=== PATIENT | female | born 1980 | race Caucasian/White ===

== ENCOUNTER → 2017-08-18 09:50 | Outpatient (CLI) | payer OTHER, MEDICAID, SELFPAY ==
[2017-08-18 12:18] LABS: Absolute Lymphocyte Count 1.52 X10^3/ul (0.83-4.51); Absolute Neutrophil Count 2.4 X10^3/uL (2.0-7.7); Basophil# 0.04 X10^3/uL; Basophil% 0.8 % (0-1); Eosinophil# 0.13 X10^3/uL; Eosinophils% 2.7 % (0-5); Hematocrit 39.8 % (37-47); Hemoglobin 13.2 g/dl (12.0-15.0); Lymphocyte # 1.52 X10^3/ul (4.0); Lymphocyte % 31.8 % (19-41); Mean Corp Hgb Conc 33.2 g/gl (32-36); Mean Corpuscular Hgb 32.2 pg (27.0-32.0); Mean Corpuscular Volume 97.1 fL (81-99); Mean Platelet Vol. 10.5 fl (6.2-12.0); Monocyte% 14.6 % (0-10); Neutrophil # 2.39 X10^3/uL (2.7-7.7); Neutrophil % 50.1 % (47-70); Platelet Count 281 K/mm3 (150-450); RBC Distribution Width CV 12.7 % (11.6-14.6); RBC Distribution Width SD 44.6 fl (35.1-43.9); White Blood Count 4.8 K/mm3 (4.4-11.0)
[2017-08-18 12:25] LABS: POSITIVE COUNT NO; POSITIVE DIFFERENTIAL NO; POSITIVE MORPHOLOGY NO
[2017-08-18 12:30] LABS: Magnesium 1.9 mg/dL (1.6-2.6)
== END ==
PROVIDERS: Family Provider Family Medicine; PCP Family Medicine; Visit Provider Physician Assistant Medical
DX: R00.2 Palpitations (principal); R53.83 Other fatigue
CPT/HCPCS: 36415; 83735; 85025

== ENCOUNTER → 2018-06-02 10:09 | Outpatient (CLI) | payer OTHER, SELFPAY ==
[2018-04-27 13:33] VITALS: BMI 28.0
--- NOTE | 2018-06-02 10:21 | RAD_ITS ---
STUDY: X-RAY - CERVICAL SPINE REASON FOR EXAM: Female, 37 years old. Neck and left shoulder pain TECHNIQUE: 5 view(s) of the cervical spine were obtained. COMPARISON: None FINDINGS: Normal anterior atlantoaxial articulation. Normal odontoid process. There is straightening of the normal cervical lordosis. There is minimal endplate spondylosis of C4-C7. Normal disc space heights. Normal visualized intervertebral neuroforamina. The soft tissue structures are unremarkable. RAD/Cerv Spine 4 or 5 Views IMPRESSION: Minimal endplate spondylosis of C4-C7. There is straightening of the normal lordotic curvature which may be positional in nature or due to muscular spasm. There is no evidence of fracture or subluxation. Disc spacing is preserved. Electronically Signed: Cesar Mireles MD at 16:28 EST , Service support ,
--- NOTE | 2018-06-02 10:22 | RAD_ITS ---
STUDY: X-RAY - LEFT SHOULDER REASON FOR EXAM: Female, 37 years old. Neck and left shoulder pain TECHNIQUE: 4 view(s) of the shoulder. COMPARISON: None. FINDINGS: Normal glenohumeral articulation. Normal acromioclavicular joint. Normal acromion. Normal humeral head and visualized proximal humerus. The soft tissue structures are unremarkable. Normal visualized pulmonary apex. RAD/Shoulder min 2 Views IMPRESSION: Normal x-ray examination of the shoulder. Electronically Signed: Cesar Mireles MD at 16:33 EST , Service support ,
== END ==
PROVIDERS: Family Provider Family Medicine; PCP Family Medicine; Referring Provider Family Medicine; Visit Provider Family Medicine
DX: M62.838 Other muscle spasm (principal)
CPT/HCPCS: 72050; 73030

== ENCOUNTER → 2019-08-18 | Outpatient (CLI) | payer OTHER, SELFPAY ==
[2019-05-15 14:24] VITALS: BMI 27.9
--- NOTE | 2019-08-18 15:30 | RAD_ITS ---
STUDY: X-RAY CHEST REASON FOR EXAM: Female, 39 years old. Shortness of breath and cough TECHNIQUE: PA and lateral views of the chest. COMPARISON: None. FINDINGS: The lungs are clear and expanded. There is no demonstrated pleural abnormality. Normal size heart. Normal mediastinum and russell. Normal visualized pulmonary arteries. Normal visualized aortic arch and descending thoracic aorta. Normal visualized thoracic spine. Normal visualized ribs, clavicles, and shoulders. There is no demonstrated abnormality of the visualized soft tissue structures of the upper abdomen. RAD/Chest PA and Lateral IMPRESSION: Normal x-ray examination of the chest. Electronically Signed: Simeon Vitale MD at 10:45 EST , Service support ,
== END | disposition home or self-care (01) ==
LOC: MTRAD 15:27
PROVIDERS: PCP Family Medicine; Referring Provider Family Medicine; Visit Provider Family Medicine
DX: R05 Cough (principal); R06.00 Dyspnea, unspecified
CPT/HCPCS: 71046

== ENCOUNTER → 2020-07-17 10:52 | Outpatient (CLI) | payer OTHER, SELFPAY ==
[2019-05-15 14:24] VITALS: BMI 27.9
[2020-07-17 12:26] LABS: D-Dimer Quantitative (DVT/PE) <= 0.27 FEU/ug/m (0.27-0.49)
== END ==
PROVIDERS: PCP Family Medicine; Visit Provider Family Medicine
DX: R05 Cough (principal); R06.00 Dyspnea, unspecified
CPT/HCPCS: 36415; 85379

== ENCOUNTER → 2020-07-19 10:21 | Outpatient (CLI) | payer OTHER, SELFPAY ==
[2019-05-15 14:24] VITALS: BMI 27.9
--- NOTE | 2020-07-19 10:27 | RAD_ITS ---
STUDY: X-RAY CHEST REASON FOR EXAM: Female, 40 years old. PERSISTENT DYSPNEA AND COUGH -- S/P COVID x8 WEEKS AGO TECHNIQUE: PA and lateral views of the chest. COMPARISON: Comparison is made with prior study dated 08/18/2019. FINDINGS: Hyperinflation. The lungs are clear. There is no demonstrated pleural abnormality. Normal size heart. Normal mediastinum and russell. Normal visualized pulmonary arteries. Normal visualized aortic arch and descending thoracic aorta. Normal visualized thoracic spine. Normal visualized ribs, clavicles, and shoulders. There is no demonstrated abnormality of the visualized soft tissue structures of the upper abdomen. RAD/Chest PA and Lateral IMPRESSION: Hyperinflation. The lungs are clear. Electronically Signed: Donald Mathis MD at 12:57 EST , Service support ,
== END ==
PROVIDERS: PCP Family Medicine; Referring Provider Family Medicine; Visit Provider Family Medicine
DX: R06.00 Dyspnea, unspecified (principal); R05 Cough
CPT/HCPCS: 71046

== ENCOUNTER → 2020-09-09 12:16 | Outpatient (CLI) | payer OTHER, SELFPAY ==
[2019-05-15 14:24] VITALS: BMI 27.9
[2020-09-09 14:53] LABS: Absolute Lymphocyte Count 1.55 X10^3/uL (0.83-4.51); Absolute Neutrophil Count 4.3 X10^3/uL (2.0-7.7); Basophil# 0.04 X10^3/uL; Basophil% 0.6 % (0-1); Eosinophil# 0.08 X10^3/uL; Eosinophils% 1.2 % (0-5); Hematocrit 40.1 % (37-47); Hemoglobin 13.3 g/dL (12.0-15.0); Lymphocyte # 1.55 X10^3/ul (4.0); Lymphocyte % 23.8 % (19-41); Mean Corp Hgb Conc 33.2 g/dL (32-36); Mean Corpuscular Hgb 33.2 pg (27.0-32.0); Mean Platelet Vol. 10.2 fl (6.2-12.0); Monocyte# 0.51 X10^3/uL; Monocyte% 7.8 % (0-10); NRBC Flagged by Analyzer 0 % (0-5); Neutrophil # 4.32 X10^3/uL (2.7-7.7); Neutrophil % 66.3 % (47-70); Platelet Count 331 K/mm3 (150-450); RBC Distribution Width CV 12.6 % (11.6-14.6); RBC Distribution Width SD 46.8 fl (35.1-43.9); Red Blood Count 4.01 M/mm3 (4.2-5.4); White Blood Count 6.5 K/mm3 (4.4-11.0)
[2020-09-09 15:13] LABS: Vitamin B12 445 pg/mL (211-911); Vitamin D,25 Hydroxy 24.7 ng/mL
[2020-09-09 15:31] LABS: ALB/GLOB Ratio 1.1 RATIO (0.9-2.4); AST(SGOT) 19 U/L (15-37); Alanine Aminotransfer ALT/SGPT 39 U/L (13-56); Alkaline Phosphatase 64 U/L (45-117); Anion Gap 4 (5-15); BUN 8 mg/dL (7-18); BUN/Creat Ratio 10.6 RATIO (10-20); Chloride 105 mmol/L (98-107); Creatinine, Serum 0.76 mg/dL (0.55-1.02); EST Glomerular Filtration Rate 91 mL/min (>60); Est Glom Filt Rate - Afr Amer 110 mL/min (>60); Free T3 1.8 pg/mL (2.18-3.98); Globulin 3.6 g/dL (2.2-4.2); Glucose 90 mg/dL (74-106); Iron 125 ug/dL (50-170); Potassium 4.1 mmol/L (3.5-5.1); Protein, Total 7.6 g/dL (6.4-8.2); Sodium Level 137 mmol/L (136-145); T4 Free Direct 0.74 ng/dL (0.76-1.46); Thyroid Stim Hormone (TSH) 1.83 uIU/mL (0.358-3.74)
== END ==
PROVIDERS: PCP Family Medicine; Referring Provider Family Medicine; Visit Provider Family Medicine
DX: E55.9 Vitamin D deficiency, unspecified (principal); E53.8 Deficiency of other specified B group vitamins; D64.9 Anemia, unspecified; E61.1 Iron deficiency; R53.83 Other fatigue; Z51.81 Encounter for therapeutic drug level monitoring
CPT/HCPCS: 36415; 80053; 82306; 82607; 83540; 84439; 84443; 84481; 85025

== ENCOUNTER → 2021-05-20 07:54 | Outpatient (CLI) | payer OTHER, SELFPAY ==
--- NOTE | 2021-05-20 07:57 | US_ITS ---
STUDY: THYROID ULTRASOUND REASON FOR EXAM: Female, 40 years old. THYROMEGALY TECHNIQUE: Ultrasound evaluation of the thyroid was performed with real-time and static franco-scale imaging. COMPARISON: None. FINDINGS: RIGHT LOBE: The right lobe of the thyroid gland measures 4.7x2x1.8 cm. There is a homogeneous echotexture. There is a nodule. This measures 7 x 7 x 6 mm. The lesion is solid with regular margins and estuardo nodular doppler flow. LEFT LOBE: The left lobe of the thyroid gland measures 4.6x1.8x1.6 cm. There is a homogeneous echotexture. There is a nodule. This measures 10 x 5 x 6 mm. The lesion is solid with regular margins and estuardo nodular doppler flow. ISTHMUS: The isthmus measures 2 mm. The regional lymph nodes are normal. US/Thyroid IMPRESSION: There are RIGHT nodules. This nodule is solid or almost completely solid, anechoic, [id number], smoothly marginated and contains no echogenic foci. TI-RADS points: 2. TI-RADS category: TR2. This nodule is not suspicious and no FNA or follow-up is necessary. There are left nodules. TR2: Not Suspicious: No FNA Electronically Signed: Issa Schultz MD at 16:22 EST , Service support ,
== END ==
PROVIDERS: PCP Family Medicine; Referring Provider Family Medicine; Visit Provider Family Medicine
DX: E01.0 Iodine-deficiency related diffuse (endemic) goiter (principal)
CPT/HCPCS: 76536

== ENCOUNTER 2021-06-05 06:29 | Day surgery (SDC) | payer OTHER, SELFPAY ==
[2021-06-05 06:58] LABS: Internal QC Validated? YES +Cl - CLEAR BKGD; Pregnancy, Urine Negative Negative
[2021-06-05 07:04] VITALS: BP 123/77; PULSE 88; RESP 16; TEMP 36.2; O2SAT 100; BMI 28.5
[2021-06-05] MEDS: Lactated Ringers 1,000 ML 15 ML IV (07:09)
--- NOTE | 2021-06-05 07:11 | PCM.HP.BLA ---
History and Physical Date of Admission: 06/05/21 Date of Service: 05/26/21 MR#:[id number]:[id number]: ROBERTH OSBORNE [facility] #:[id number]:1980 Provider:Dr. Todd Gallegos MDAge/Sex: 40/F [facility] Vital Signs 05/26/21 08:58 Height 5 ft 6 in Weight: 178 lb 4 oz BMI 28.8 BP 161/85 H Blood Pressure Location Rt brachial Position Sitting Respiration 17 Pulse 84 Pulse Source Monitor Temp 97.2 F L Temp Source Temporal Pulse Oximetry (%) 98 Oxygen Delivery Method room air Intake Visit Reasons: Esophagogastroduodenoscopy Chief Complaint: Esophagogastroduodenoscopy [employer] Counter Assistant Required: No Is patient in pain?: No Allergies No Known Allergies Allergy (Verified 05/26/21 08:59) Medications duloxetine 60 mg capsule,delayed release 60 mg PO QDAY 08/10/17 [History Confirmed 05/26/21] bupropion HCl 150 mg tablet,12 hr sustained-release 300 mg PO QDAY ea 04/27/18 [History Confirmed 05/26/21] nadolol 20 mg tablet 10 mg PO DAILY tab 05/26/21 [History] omeprazole 40 mg capsule,delayed release 40 mg PO DAILY 05/26/21 [History Confirmed 05/26/21] [facility] Medical History (Updated 05/26/21 @ 10:[address] Todd Gallegos MD) Abnormal EKG Chest pain, precordial Dizziness and giddiness Fatigue Palpitations Paroxysmal tachycardia Syncope and collapse Tobacco abuse Surgical History (Updated 05/26/21 @ 08:57 by Lianne Wednesday) History of ankle surgery Family History (Updated 05/26/21 @ 09:03 by Lianne Wednesday) Mother Hypertension SVT (supraventricular tachycardia) Cancer skin CA Grandmother Breast cancer Paternal and maternal grandmothers Brother Hypertension Social History (Updated 05/26/21 @ 08:57 by Lianne Wednesday) Smoking Status: Former smoker alcohol intake: current details: occasional substance use type: does not use HPI HPI HPI: ROBERTH OSBORNE, is a 40 F who presents to the office today for new hoarseness, globus sensation and acid reflux. They are referred for surgical consultation from Dr. Hoffman. Mrs. Osborne states the hoarseness began approximately 1 year ago. She denies any associated illnesses at that time. She states that it came on rather abruptly and has persisted since that time. Day-to-day, the hoarseness will come and go but it is always present in some degree and her globus sensation is always present. She denies any voice fatiguing. She denies any associated cough or shortness of breath. Dr. Hoffman performed a laryngeal exam last week and stated her cord function was normal just that the posterior pharynx was inflamed. Regarding her acid reflux, she states that this is a fairly recent development in her health history. She notes that she only occasionally experiences heartburn. She states 1-2 times per month she will wake up in the middle of the night with a burning sensation. This seems to occur particularly in response to spicy foods. As such, she confirms she is minimizing her intake of these foods and trying to eat at least 3 to 4 hours before lying down. Confirms that her weight is stable. She denies any new foods and states that her coffee/caffeine intake has remained stable. They are currently on Prilosec and have been on other PPI medications, but unfortunately has had no relief of symptoms. There is no family history of reflux or hiatal hernia. Patient has no past surgical history. ROS General General: No weight change, appetite, fatigue, colon cancer, breast cancer or weakness HEENT HEENT: Yes hoarseness; No difficulty swallowing, eye injury, eye surgery or swollen glands Additional Details: Has been having hoarseness and having to clear throat for 1 year. Denies difficulty swallowing Endo Endocrine: Yes thyroid disease; No diabetes mellitus, thyroid cancer, Hair loss, heat intolerance or cold intolerance Additional Details: hypothyroid Skin Skin: No rash or changing moles Musc Musculoskeletal: No back problems, arthritis, rheumatoid arthritis, gout or joint pain Cardio Cardiovascular: No murmur, pacemaker, heart disease, atrial fibrillation, high blood pressure, heart attack, heart stent, palpitations, shortness of breat with exertion or chest pain Additional Details: Sees Dr. Hess for vasovagal syncope, believes she has POTS Psych Psychiatric: Yes depression and anxiety; No hearing voices Resp Respiratory: No shortness of breath, No sleep apnea, No cough, No COPD, No asthma, No emphysema and No wheezing Gastro Gastrointestinal: No abdominal pain, No nausea or vomiting, No diarrhea, No constipation, No blood in stool, No acid reflux, No hemorrhoids, No ulcers, No gallbladder problem and No black,tarry stools Young Hematologic: No blood thinners, No blood disorders, No bleeding, No anemia and No blood clots Neuro Neurologic: No system reviewed and no additional complaints, except as documented, No as per HPI, No abnormal gait, No abnormal hearing, No abnormal movements, No abnormal speech, No behavioral changes, No burning sensations, No confusion, No convulsions, No disequilibrium, No dizziness, No localized weakness, No frequent falls, No headache(s), No lack of coordination, No loss of vision, No memory loss, No numbness, No other visual disturbances, No radicular pain, No restless legs, No sensory deficit, No syncope, No tingling, No tremor(s), No weakness and No other Exam Const General: cooperative and comfortable Nutritional Appearance: average body habitus Orientation: alert, awake and oriented x3 Resp Effort & Inspection: normal respiratory effort Auscultation: no rales, no rhonchi and no wheezes Cardio Rate: regular rate Rhythm: regular rhythm Heart Sounds: S1 normal and S2 normal GI Inspection: non-distended and scar (Umbilical piercing scar but no incisional scar) Palpation: soft, no hernias and tender in the epigastrum (Mildly tender with deep palpation) Assessment and Plan Assessment and Plan (1) Hoarseness: Status: Acute Comment: 40-year-old female presenting with a 1 year complaint of hoarseness of voice. According to ENT, laryngeal function is intact but patient has inflammation of the posterior pharynx despite several trials of PPI medications. Patient admits to infrequent episodes of heartburn, but certainly could be experiencing silent reflux as well. Therefore EGD investigation is indicated to examine for possible hiatal hernia or other structural abnormalities that could suggest an etiology. It is noted patient's thyroid ultrasound showed a thyroid gland of normal proportions and, while there were thyroid nodules noted, these were subcentimeter and unlikely to contribute symptoms. Plan - Dr. Todd Gallegos MD: Plan for EGD under local MAC (2) Acid reflux: Status: Acute Qualifiers: Esophagitis presence: esophagitis presence not specified Qualified Code(s): K21.9 - Gastro-esophageal reflux disease without esophagitis Comment: 40-year-old female with fairly recent onset of reflux symptoms. Actual heartburn complaints are frequently experienced. For this does sound like classic reflux as a seem to occur in response to spicy foods and when lying flat. Patient has already made lifestyle changes to decrease her likelihood for these symptoms by minimizing these foods in her diet and eating well before bedtime. Unfortunately she has not experienced relief with proton pump inhibitors, and therefore, EGD investigation is warranted. I did discuss, in a cursory fashion, possible etiologies for patient's symptoms to include hiatal hernia, H. pylori, other and did so with drawings. Patient was given the opportunity ask any questions. Plan - Dr. Todd Gallegos MD: Proceed with EGD under local MAC I have re-examined the patient. There are no clinical changes since date of exam. Patient states she is ready for the exam and has no questions. I review plans for the exam and informed him that any pathology will require some lead time for processing. We will proceed with scheduled EGD under local MAC.
--- NOTE | 2021-06-05 07:30 | EGD_PTH ---
PATIENT: ROBERTH GUO LOC: EN U#:[id number] AGE/SX: 40/F ROOM: RE06/05/[address]: Dr. Todd Gallegos MD : 1980 BED: DIS: 06/05/2021 SPEC #: [id number] RECD: 06/05/21 10:29 STATUS: ALOK NICOLA #: [id number] [place]: 06/05/21 07:[address]: Todd Gallegos DEPT: SURGICAL PATHOLOGY RECD BY: Niru Perez ENTERED: 06/05/21 10:56 SP TYPE: EGD BIOPSY OTHR DR: Dr. Nessa Madrid DO Tissues: Gastric mucous membrane Procedures: Surgery Specimen Level IV HEADER OPERATION: EGD ([facility]) PRE-OP DIAGNOSIS: Hoarseness, acid reflux TISSUE SUBMITTED: Antrum biopsy for histo and H. pylori MICROSCOPIC DIAGNOSIS Antrum biopsy: Mild gastritis. See microscopic description and comment. SJ:charo 06/09/2021 COMMENT The results of immunohistochemistry for Helicobacter pylori will be reported separately ([id number]). MICROSCOPIC DESCRIPTION Slides are reviewed. The specimen shows fragments of gastric mucosa with chronic inflammatory cell infiltrates in the lamina propria consisting of lymphocytes and plasma cells, consistent with mild chronic gastritis. GROSS DESCRIPTION Received in fixative is one container labeled with the patient's name and designated antrum biopsy. The specimen consists of multiple irregular fragments of light celis soft tissue that in aggregate measure 0.6 x 0.3 x 0.1 cm. The specimen is totally submitted in one cassette. / AM:charo 06/05/21 TC:3 CPT: 84272
--- NOTE | 2021-06-05 07:30 | IMM_PTH ---
PATIENT: ROBERTH GUO LOC: EN U#:[id number] AGE/SX: 40/F ROOM: RE06/05/[address]: Dr. Todd Gallegos MD : 1980 BED: DIS: 06/05/2021 SPEC #: [id number] RECD: 06/05/21 13:14 STATUS: ALOK RERome #: [id number] MIL[place]: 06/05/21 07:[address]: Todd Gallegos DEPT: IMMUNOHISTOCHEMISTRY RECD BY: Alyssa Aden ENTERED: 06/05/21 13:16 SP TYPE: IMMUNO OTHR DR: Dr. Nessa Madrid DO Tissues: Stomach, NOS Procedures: H Pylori (initial) PHYSICIAN & INSTITUTION [place] [phone] SPECIMEN INFORMATION: Tissue Source: Antrum biopsy Clinical Info: Hoarseness, acid reflux Specimen Number: [id number] CPT code: 56165 METHODOLOGY: Deparaffinized sections of prefer/formalin-fixed tissue or PAP/DQ stained slides are incubated with monoclonal/polyclonal antibodies/oligonucleotide probes. Localization is made via biotin free immunoperoxidase method. Appropriate controls are performed and reacted as expected. Results on target cell population are indicated in the following table: RESULTS: ANTIBODY / CLONE RESULT H Pylori (polyclonal) negative These tests were developed and their performance characteristics determined by [facility]. They may not have been cleared or approved by the U.S. Food and Drug Administration. The FDA has determined that such clearance or approval is not necessary. INTERPRETATION: Antrum biopsy: Negative for Helicobacter pylori organisms. MICHELE:charo 06/09/2021
[2021-06-05 07:45] VITALS: BP 101/70; BP 123/77; PULSE 83; RESP 16; TEMP 36.1; O2SAT 94
[2021-06-05 07:50] VITALS: BP 123/77; BP 99/74; PULSE 84; RESP 16; O2SAT 93
--- NOTE | 2021-06-05 07:54 | OP.EGD_ITS ---
Patient Name: Shakila Osborne Procedure Date: 06/05/2021 6:28 AM Date of : 1980 Age: 40 Procedure: Upper GI endoscopy Indications: Suspected gastro-esophageal reflux disease, Globus sensation Providers: Todd Gallegos MD Medicines: See the Anesthesia note for documentation of the administered medications Patient Profile: Patient has symptoms. Complications: No immediate complications. Estimated blood loss: Minimal. Procedure: Pre-Anesthesia Assessment: - The heart rate, respiratory rate, oxygen saturations, blood pressure, adequacy of pulmonary ventilation, and response to care were monitored throughout the procedure. After obtaining informed consent, the endoscope was passed under direct vision. Throughout the procedure, the patient's blood pressure, pulse, and oxygen saturations were monitored continuously. The Endoscope was introduced through the mouth, and advanced to the second part of duodenum. The upper GI endoscopy was accomplished without difficulty. Scope In: 7:34:15 AM Scope Out: 7:41:48 AM Total Procedure Duration Time 0 hours 7 minutes 33 seconds Findings: The examined duodenum was normal. No biopsies or other specimens were collected for this exam. Localized moderate inflammation characterized by erythema and friability was found in the gastric antrum. Biopsies were taken with a cold forceps for histology. Biopsies were taken with a cold forceps for Helicobacter pylori cultures. Estimated blood loss was minimal. The Z-line was regular and was found 36 cm from the incisors. No biopsies or other specimens were collected for this exam. The examined esophagus was normal. No biopsies or other specimens were collected for this exam. Impression: - Normal examined duodenum. No specimens collected. - Gastritis. Biopsied. - Z-line regular, 36 cm from the incisors. No specimens collected. - Normal esophagus. No specimens collected. Recommendation: - Discharge patient to home (via wheelchair). - Resume regular diet today. - Continue present medications. - Await pathology results. - Telephone my office for pathology results in 1 week. Procedure Code(s): --- Professional --- 55377, Esophagogastroduodenoscopy, flexible, transoral; with biopsy, single or multiple Diagnosis Code(s): --- Professional --- K29.70, Gastritis, unspecified, without bleeding F45.8, Other somatoform disorders CPT copyright 2017 [employer]. All rights reserved. The codes documented in this report are preliminary and upon freight engineer review may be revised to meet current compliance requirements. Todd Gallegos MD 06/05/2021 7:53:46 AM This report has been signed electronically. Number of Addenda: 0 Note Initiated On: 06/05/2021 6:28 AM
[2021-06-05 07:55] VITALS: BP 104/75; BP 123/77; PULSE 89; RESP 16; O2SAT 95
--- NOTE | 2021-06-05 07:55 | OP.CCLET_ITS ---
06/05/2021 Nessa Madrid [address] [place] [address] Re : Upper GI endoscopy procedure for Shakila Dylon Dear Dr. Madrid This procedure was performed on May. My impressions and recommendations are as follows: Impressions : - Normal examined duodenum. No specimens collected. - Gastritis. Biopsied. - Z-line regular, 36 cm from the incisors. No specimens collected. - Normal esophagus. No specimens collected. Recommendations : - Discharge patient to home (via wheelchair). - Resume regular diet today. - Continue present medications. - Await pathology results. - Telephone my office for pathology results in 1 week. My findings are described in the full procedure note, which is enclosed. If I can be of further assistance, please feel free to contact me at Doctor phone number(s): , Work: . Sincerely, Todd Gallegos MD 06/05/2021 7:53:46 AM This report has been signed electronically.
[2021-06-05 08:05] VITALS: BP 112/75; BP 123/77; PULSE 81; RESP 16; TEMP 36.1; O2SAT 95
[2021-06-05 08:15] VITALS: BP 123/77
== END 2021-06-05 08:29 ==
LOC: EN 06:30 → AC 06:31
PROVIDERS: Anesthesiology; PCP Family Medicine; Referring Provider Family Medicine; Visit Provider Surgery
PROC: 0DJ08ZZ Inspection of Upper Intestinal Tract, Via Natural or Artificial Opening Endoscopic (ICD-10-PCS; CPT 43235; principal; 2021-06-05 07:25)
DX: K29.70 Gastritis, unspecified, without bleeding (principal); F45.8 Other somatoform disorders; Z87.891 Personal history of nicotine dependence
CPT/HCPCS: 43239; 81025; 88305; 88342; J7120; A4216; J2405

== ENCOUNTER → 2022-09-16 | Outpatient (CLI) | payer BC, SELFPAY ==
[2022-09-16 12:22] LABS: Absolute Lymphocyte Count 1.67 X10^3/uL (0.83-4.51); Absolute Neutrophil Count 6.5 X10^3/uL (2.0-7.7); Basophil# 0.03 X10^3/uL; Basophil% 0.3 % (0-1); Eosinophil# 0.12 X10^3/uL; Eosinophils% 1.3 % (0-5); Hematocrit 39.4 % (37-47); Hemoglobin 13.4 g/dL (12.0-15.0); Lymphocyte # 1.67 X10^3/ul (0.83-4.51); Lymphocyte % 18.6 % (19-41); Mean Corpuscular Hgb 34.6 pg (27.0-32.0); Mean Corpuscular Volume 101.8 fL (81-99); Mean Platelet Vol. 10.9 fl (6.2-12.0); Monocyte# 0.63 X10^3/uL; NRBC Flagged by Analyzer 0 % (0-5); Neutrophil % 72.4 % (47-70); Platelet Count 296 K/mm3 (150-450); RBC Distribution Width CV 12.1 % (11.6-14.6); RBC Distribution Width SD 45.2 fl (35.1-43.9); Red Blood Count 3.87 M/mm3 (4.2-5.4)
[2022-09-16 13:05] LABS: Progesterone Level 0.41 ng/mL (See Comment)
[2022-09-16 13:22] LABS: ALB/GLOB Ratio 1.2 RATIO (0.9-2.4); AST(SGOT) 20 U/L (15-37); Alanine Aminotransfer ALT/SGPT 29 U/L (13-56); Alkaline Phosphatase 44 U/L (45-117); Anion Gap 7 (5-15); BUN 13 mg/dL (7-18); BUN/Creat Ratio 16.6 RATIO (10-20); Chloride 104 mmol/L (98-107); Creatinine, Serum 0.78 mg/dL (0.55-1.02); EST Glomerular Filtration Rate 86 mL/min (>60); Est Glom Filt Rate - Afr Amer 104 mL/min (>60); Estradiol 426.6 pg/mL; Follicle Stimulating Hormone 6.8 mIU/mL; Free T3 2.7 pg/mL (2.18-3.98); Globulin 3.4 g/dL (2.2-4.2); Glucose 83 mg/dL (74-106); Luteinizing Hormone 17.7 mIU/mL; Potassium 3.8 mmol/L (3.5-5.1); Protein, Total 7.4 g/dL (6.4-8.2); Sodium Level 137 mmol/L (136-145); T4 Free Direct 0.83 ng/dL (0.76-1.46); Thyroid Stim Hormone (TSH) 1.26 uIU/mL (0.358-3.74)
== END | disposition home or self-care (01) ==
LOC: BFHLAB 11:06
PROVIDERS: PCP Family Medicine; Referring Provider Family Medicine; Visit Provider Family Medicine
DX: E03.9 Hypothyroidism, unspecified (principal); N93.8 Other specified abnormal uterine and vaginal bleeding; Z51.81 Encounter for therapeutic drug level monitoring
CPT/HCPCS: 36415; 80053; 82670; 83001; 83002; 84144; 84439; 84443; 84481; 85025

== ENCOUNTER → 2024-09-12 | Outpatient (CLI) | payer OTHER, SELFPAY ==
[2024-09-12 21:48] LABS: ALB/GLOB Ratio 1.7 RATIO (0.9-2.4); AST(SGOT) 24 U/L (<=31); Alanine Aminotransfer ALT/SGPT 27 U/L (<=34); Albumin, Serum 4.3 g/dL (3.5-5.0); Alkaline Phosphatase 46 U/L (35-104); Anion Gap 10 (5-15); BUN 7 mg/dL (4-19); BUN/Creat Ratio 10.4 RATIO (10-20); Calcium,Total 9.3 mg/dL (7.6-11.0); Carbon Dioxide 25.7 mmol/L (21.0-32.0); Chloride 103 mmol/L (98-108); Creatinine, Serum 0.67 mg/dL (0.70-1.20); EST Glomerular Filtration Rate 112 (>60); Ferritin 299 ng/mL (22-378); Globulin 2.6 g/dL (2.2-4.2); Glucose 87 mg/dL (70-99); Potassium 4.3 mmol/L (3.3-5.1); Protein, Total 6.9 g/dL (5.9-8.4); Sodium Level 139 mmol/L (133-145); Total Bilirubin 0.27 mg/dL (0.00-1.30)
[2024-09-12 22:25] LABS: Iron 74 ug/dL (50-170)
== END | disposition home or self-care (01) ==
PROVIDERS: PCP Family Medicine; Visit Provider Family Medicine
DX: E03.9 Hypothyroidism, unspecified (principal); R79.89 Other specified abnormal findings of blood chemistry
CPT/HCPCS: 36415; 80053; 82728; 83540; 84439; 84443; 84481